=== PATIENT | female | born 1985 | race Caucasian/White ===

== ENCOUNTER 2017-02-21 22:27 | Emergency (ER) | payer OTHER ==
[2017-02-21 23:15] VITALS: BP 112/65
== END 2017-02-21 23:15 | disposition home or self-care (01) ==
LOC: ED 22:27
DX: M54.5 Low back pain (principal); V49.59XA Passenger injured in collision with other motor vehicles in traffic accident, initial encounter; Y93.89 Activity, other specified; Y99.8 Other external cause status; Y92.89 Other specified places as the place of occurrence of the external cause
CPT/HCPCS: J1885

== ENCOUNTER 2017-04-25 00:58 | Emergency (ER) | payer OTHER ==
[2017-04-25 03:36] LABS: PLATELET COUNT 197 x10^3mcL (130-400); RED CELL DISTRIBUTION WIDTH 12.4 % (11.5-14.5)
[2017-04-25 03:38] LABS: CALCIUM 8.7 mg/dL (8.5-10.1); CARBON DIOXIDE 29.7 mmol/L (21-32); CHLORIDE SERUM 104 mmol/L (98-107); CREATININE SERUM 0.8 mg/dL (0.6-1.0); GFR1 > 60 mL/min; GLUCOSE SERUM 83 mg/dL (74-106); POTASSIUM SERUM 3.6 mmol/L (3.5-5.1); SODIUM SERUM 134 mmol/L (136-145)
[2017-04-25 03:41] LABS: ALBUMIN 3.5 g/dL (3.4-5.0); ALKALINE PHOSPHATASE 114 U/L (46-116); ALT/SGPT 89 U/L (14-59); AST/SGOT 40 U/L (15-37); BILIRUBIN TOTAL 0.28 mg/dL (0.20-1.00); TOTAL PROTEIN, SERUM 7.4 g/dL (6.4-8.2)
[2017-04-25 03:43] LABS: microscopic required? NO
[2017-04-25 03:52] LABS: BASOPHIL % 5.5 % (0-2)
[2017-04-25 04:09] LABS: UA SPECIFIC GRAVITY 1.015 (1.005-1.035); urine erythrocyte NEGATIVE (NEGATIVE)
[2017-04-25 07:59] VITALS: BP 93/62
== END 2017-04-25 07:59 | disposition home or self-care (01) ==
LOC: ED 00:58
PROVIDERS: Emergency Medicine
DX: R07.9 Chest pain, unspecified (principal)
CPT/HCPCS: 36415; 83880; Q0092

== ENCOUNTER 2017-10-24 18:08 | Emergency (ER) | payer OTHER ==
[~2017-10-24] VITALS: Ht 157.5 cm; Wt 73.5 kg
[2017-10-24 18:19] VITALS: Ht 157.5 cm; Wt 73.5 kg
[2017-10-24 19:25] LABS: BASOPHIL % 0.3 % (0-2); PLATELET COUNT 199 x10^3mcL (130-400); RED CELL DISTRIBUTION WIDTH 12.3 % (11.5-14.5)
[2017-10-24 19:33] LABS: CALCIUM 9.1 mg/dL (8.5-10.1); CARBON DIOXIDE 26.4 mmol/L (21-32); CHLORIDE SERUM 103 mmol/L (98-107); CREATININE SERUM 0.6 mg/dL (0.6-1.0); GFR1 > 60 mL/min; GLUCOSE SERUM 118 mg/dL (74-106); POTASSIUM SERUM 3.4 mmol/L (3.5-5.1); SODIUM SERUM 139 mmol/L (136-145)
[2017-10-24 19:37] LABS: ALBUMIN 3.8 g/dL (3.4-5.0); ALKALINE PHOSPHATASE 87 U/L (46-116); ALT/SGPT 129 U/L (14-59); AST/SGOT 28 U/L (15-37); BILIRUBIN TOTAL 0.5 mg/dL (0.20-1.00); LIPASE 43 IU/L (73-393); TOTAL PROTEIN, SERUM 7.8 g/dL (6.4-8.2)
[2017-10-24 19:49] LABS: UA SPECIFIC GRAVITY 1.015 (1.005-1.035); microscopic required? YES; urine erythrocyte NEGATIVE (NEGATIVE)
[2017-10-24 21:31] VITALS: BP 96/50
== END 2017-10-24 21:31 | disposition home or self-care (01) ==
LOC: ED 18:08
PROVIDERS: Emergency Medicine
DX: F07.81 Postconcussional syndrome (principal); N83.201 Unspecified ovarian cyst, right side; E83.42 Hypomagnesemia; E87.6 Hypokalemia
CPT/HCPCS: J2270; J2405; J2550; J7030; Q9967